=== PATIENT | male | born 1985 ===

== ENCOUNTER 2017-09-29 13:02 | Emergency (ER) | payer SELFPAY ==
[2017-09-29 13:10] VITALS: BP 145/88; PULSE 125; RESP 20; TEMP 99.8; O2SAT 98
--- NOTE | 2017-09-29 13:54 | C.PDOC ---
History Of Present Illness 32 year old male, presenting with body aches, fever, chills and sore throat x3 days. The patient reports that he is feeling pain all over his body. He states that he last took 1 acetaminophen tablet 3 hours ago for his symptoms but it offered no relief. Patient also notes a cough productive of yellow sputum. Denies vomiting, nausea, headache. No sick contacts. Time Seen by Provider: 09/29/17 13:18 Chief Complaint (Nursing): Fever History Per: Patient History/Exam Limitations: no limitations Onset/Duration Of Symptoms: Days Current Symptoms Are (Timing): Still Present Location Of Pain: Throat Sick Contacts (Context): None Associated Symptoms: Fever, Chills, Sore Throat, Cough. denies: Nausea, Vomiting Recent travel outside of the [place]: No Past Medical History Reviewed: Historical Data, Nursing Documentation, Vital Signs Vital Signs: Last Vital Signs Temp 99.8 F H 09/29/17 13:08 Pulse 125 H 09/29/17 13:08 Resp 20 09/29/17 13:08 BP 145/88 09/29/17 13:08 Pulse Ox 98 09/29/17 14:16 - Medical History PMH: No Chronic Diseases Surgical History: No Surg Hx Family History: States: Unknown Family Hx - Social History Hx Tobacco Use: No Hx Alcohol Use: No Hx Substance Use: No - Immunization History Hx Tetanus Toxoid Vaccination: No Hx Influenza Vaccination: No Hx Pneumococcal Vaccination: No Review Of Systems Constitutional: Positive for: Fever, Chills, Other (body aches) ENT: Positive for: Nose Congestion, Throat Pain. Negative for: Nose Discharge Respiratory: Positive for: Sputum (yellow). Negative for: Cough Gastrointestinal: Negative for: Nausea, Vomiting Physical Exam - Physical Exam Appears: Non-toxic, No Acute Distress Skin: Normal Color, Warm, Dry, No Rash Head: Atraumatic, Normacephalic, No Tenderness Eye(s): bilateral: Normal Inspection, PERRL, EOMI Ear(s): Bilateral: Normal Oral Mucosa: Moist Tongue: Normal Appearing Lips: Normal Appearing Teeth: Normal Dentition Gingiva: Normal Appearing Throat: Erythema (somewhat erythematous), No Exudate Lymphatic: Normal Exam, No Adenopathy Chest: Symmetrical, No Tenderness Cardiovascular: No Murmur, Other (tachycardic) Respiratory: Rhonchi (scattered), No Stridor, No Wheezing Neurological/Psych: Oriented x3, Normal Speech, Normal Sensation ED Course And Treatment O2 Sat by Pulse Oximetry: 98 (RA) Pulse Ox Interpretation: Normal - Radiology CXR: Viewed By Me, Read By Radiologist CXR Interpretation: Yes: No Acute Disease Medical Decision Making Medical Decision Makin Initial Impression 32 y/o male presenting with flu like symptoms Initial Plan: * CXR * Motrin Tab 600mg PO * Influenza A B * Reevaluation Pt with A+ flu swab; d/c with tamiflu and motrin, bed rest. f/u pmd. Disposition Counseled Patient/Family Regarding: Studies Performed, Diagnosis, Need For Followup, Rx Given - Disposition Referrals: [facility] [Outside] Disposition: HOME/ ROUTINE Disposition Time: 14:11 Condition: STABLE Additional Instructions: Usted tiene influenza tipo A. [place] Tamiflu 75 mg por va oral cada 12 horas brigid 5 jennings; esto ayudar a reducir la duracin de maverick sntomas. [place] ibuprofeno 600 mg por va oral cada 6 horas para detectar fiebre o dolor. Tambi n puede elpidio Tylenol cada 6 horas (alternar con ibuprofeno). Stephanie ms lquidos , obtenga un mayor descanso. Seguimiento en la clnica mdica la prxima semana. Regrese a la brina de emergencias por cualquier sntoma peor. You have influenza type A. Take Tamiflu 75 mg by mouth every 12 hours for 5 days ; this will help reduce the duration of your symptoms. Take ibupforen 600 mg by mouth every 6 hours for fever or pain. You can also take Tylenol every 6 hours ( alternate with ibuprofen) . Drink increased fluids, get increased rest. Follow up in medical clinic next week. Return to ER for any worse symptoms. Prescriptions: Ibuprofen [Motrin] 600 mg PO TID #30 tab Oseltamivir Phosphate [Tamiflu] 75 mg PO BID #10 capsule Instructions: Influenza (ED) Forms: Gen Discharge Inst Haitian, [facility] (Haitian) Print Language: PERSIAN - Clinical Impression Clinical Impression: Influenza A - Scribe Statement The provider has reviewed the documentation as recorded by the Scribbryant Villalobos All medical record entries made by the Scribe were at my direction and personally dictated by me. I have reviewed the chart and agree that the record accurately reflects my personal performance of the history, physical exam, medical decision making, and the department course for this patient. I have also personally directed, reviewed, and agree with the discharge instructions and disposition.
== END 2017-09-29 14:28 | disposition home or self-care (01) ==
LOC: C.ER 13:02
DX: J11.1 Influenza due to unidentified influenza virus with other respiratory manifestations (principal)